=== PATIENT | female | born 1990 | race African-American/Black ===

== ENCOUNTER 2017-09-22 06:52 | Emergency (ER) | payer SELFPAY ==
[~2017-09-22] VITALS: Ht 160 cm; Wt 76.0 kg
[~2017-09-22 06:52] MED LIST: NAPR550 PO
[2017-09-22 07:14] VITALS: BP 137/85; PULSE 94; RESP 16; TEMP 98.1; O2SAT 98
--- NOTE | 2017-09-22 07:43 | PD ---
HPI Chief Complaint: Psychiatric Symptoms Time Seen by Provider: 07:22 Travel History International Travel<30 days: No Contact w/Intl Traveler<30days: No Traveled to known affect area: No History of Present Illness HPI 27yo F with no significant PMH presents to the ED under Funk Act because she texted her friend that "I'm over life at this point, I'm better off ". 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 She place her phone on airplane mode and then went to sleep only to wake up with continuity writer in her house. Pt denies any suicidal ideations or plan. She does not have access to firearm and said she has things to live for and was just venting to a friend. She denies any homicidal ideation, visual or auditory hallucinations. Denies any fever, chest pain, sob, n/v, abdominal pain, focal weakness or numbness. Pt has no psychiatric history. Denies drug use. PFSH Past Medical History ?: Not LMP: 09/04/17 Social History Alcohol Use: Yes (SOCIALLY) Tobacco Use: Yes (5 CIGS A DAY) Substance Use: No Allergies-Medications (Allergen,Severity, Reaction): Coded Allergies: No Known Allergies (Unverified , 07/23/14) Reported Meds & Prescriptions Reported Meds & Active Scripts Active Anaprox Ds (Naproxen Sodium) 550 Mg Tab 550 Mg PO BID Review of Systems Except as stated in HPI: all other systems reviewed are Neg Physical Exam Narrative GENERAL: 27yo F not in distress. SKIN: Focused skin assessment warm/dry. HEAD: Atraumatic. Normocephalic. EYES: Pupils equal and round. No scleral icterus. No injection or drainage. ENT: No nasal bleeding or discharge. Mucous membranes pink and moist. NECK: Trachea midline. No JVD. CARDIOVASCULAR: Regular rate and rhythm. No murmur appreciated. RESPIRATORY: No accessory muscle use. Clear to auscultation. Breath sounds equal bilaterally. GASTROINTESTINAL: Abdomen soft, non-tender, nondistended. MUSCULOSKELETAL: No obvious deformities. No clubbing. No cyanosis. No edema. NEUROLOGICAL: Awake and alert. No obvious cranial nerve deficits. Motor grossly within normal limits. Normal speech. PSYCHIATRIC: Appropriate mood and affect; insight and judgment normal. Data Data Last Documented VS Vital Signs Date Time Temp Pulse Resp B/P (MAP) Pulse Ox O2 Delivery O2 Flow Rate FiO2 09/22/17 07:14 98.1 94 16 137/85 (102) 98 MDM Medical Decision Making Medical Screen Exam Complete: Yes Emergency Medical Condition: Yes Differential Diagnosis Routine medical check up Narrative Course 27yo F was funk acted because she texted her friend about being better off because she was going through a rough patch with her fiance. She was venting and has no intention of hurting herself or others. Pt is AAOx3 and has no psychiatric history. Pt wants to go home and I do not feel that pt is currently a threat to herself or others. States she has work at 9am and wants to go to work. Pt has no medical complaint. Blessing Act lifted by me. Return precautions given. Diagnosis Primary Impression: Routine medical exam Patient Instructions: General Instructions Departure Forms: Tests/Procedures Additional Instructions: Please return to the ED if you have any thoughts of hurting yourself or others. Please follow up with your primary care physician as needed. Med/Other Pt SpecificInfo: No Change to Meds Disposition: 01 DISCHARGE HOME Condition: Stable Luz Gutierrez DO Sep 22, 2017 07:43
== END 2017-09-22 08:10 | disposition home or self-care (01) ==
LOC: NEPC 06:52
DX: R45.851 Suicidal ideations (principal)
CPT/HCPCS: 99283